=== PATIENT | male | born 1960 | race Caucasian/White ===

== ENCOUNTER 2016-06-09 03:47 | Emergency (ER) | payer OTHER ==
--- NOTE | 2016-06-09 07:05 | EDDOCDS ---
Physician Documentation [facility] Name: Nish Tello Age: 55 yrs Sex: Male : 1960 Arrival Date: 06/09/2016 Time: 03:47 Bed 11 Private MD: Disposition: 06/09/16 06:56 Discharged to Home/Self Care. Impression: Acute nasopharyngitis [common cold]. - Condition is Stable. - Discharge Instructions: Upper Respiratory Infection, Adult, Viral Infections, Cool Mist Vaporizers. - Prescriptions for benzonatate 200 mg Oral Capsule - take 1 capsule by ORAL route 3 times per day As needed; 30 capsule. azelastine 137 mcg (0.1 %) Nasal Aerosol, [place] - spray 2 spray by INTRANASAL route 2 times per day each nostril; 1 bottle. - Medication Reconciliation, Local Pharmacy Hours form. - Follow up: Stan Alvarado MD; When: Call to arrange an appointment; Reason: Further diagnostic work-up, Recheck today's complaints, Continuance of care. - Problem is new. - Symptoms are unchanged. Historical: - Allergies: PENICILLINS (Hives); Rocephin (Hives, Swelling); - Home Meds: 1. Thera- Flu 2. Prilosec 20 mg Oral cpDR 1 cap once daily (Last dose: 06/08/2016 08:00) 3. Vitamin D Oral Unknown (Last dose: 06/08/2016 08:00) - PMHx: Sarcoidosis; Skin Cancer; - PSHx: Mediastinoscopy; Colonoscopy; - Social history: Smoking status: Patient states was never smoker of tobacco. No barriers to communication noted, The patient speaks fluent Citizen Of [place], Speaks appropriately for age, Preferred Language: Citizen [place]. - Family history: Not pertinent. - : The pt / caregiver states he / she is not on anticoagulants. Home medication list is obtained from the patient. - Exposure Risk Screening:: None identified. Vital Signs: 06/09 03:52 BP 140 / 87; Pulse 77; Resp 18; Temp 97.8(TE); Pulse Ox 97% on R/A; Weight 102.06 kg / lf1 225 lbs (R); Height 5 ft. 8 in. (172.72 cm) (R); Pain 6/10; 07:03 BP 112 / 87; Pulse 76; Resp 18; Temp 99.5(O); Pulse Ox 97% on R/A; Pain 0/10; ck1 03:52 Body Mass Index 34.21 (102.06 kg, 172.72 cm) lf1 MDM: 04:12 [facility] Payment Agreement was scanned into [employer] and attached to record. hs2 06:48 Financial registration complete. pm4 Signatures: Daisy AtkinsonRN RN ck1 Nohelia Flores RN RN lf1 Larry Medina PA PA btw Madelyn Martinez, Reg Reg hs2 Nish Villanueva, Reg Reg pm4 The chart was reviewed and I authenticate all verbal orders and agree with the evaluation and treatment provided.Attachments: 04:12 [facility] Payment Agreement hs2 MTDD
--- NOTE | 2016-06-09 07:05 | EDDOCDS ---
[facility] Name: Nish Tello Age: 55 yrs Sex: Male : 1960 Arrival Date: 06/09/2016 Time: 03:47 Bed 11 Private MD: Diagnosis: Acute nasopharyngitis [common cold] Presentation: 06/09 03:52 Presenting complaint: Patient states: Cough that began two days ago and is not relieved lf1 with cough medicine. Pt. reports cough is non productive and barky with sore throat. Adult Sepsis Screening: The patient does not have new or worsening altered mentation. Patient's respiratory rate is less than 22. Systolic blood pressure is greater than 100. Patient has a qSOFA score of 0- Negative Sepsis Screen. Suicide/Homicide risk assessment- the patient denies having any suicidal and/or homicidal ideations and does not present with any other emotional, behavioral or mental health complaints. Status: Patient is not a visitor services associate or dependent. Transition of care: patient was not received from another setting of care. 03:52 Acuity: PARKER Level 4 lf1 03:52 Method Of Arrival: Walkin/Carried/Asstd lf1 Triage Assessment: 03:58 General: Appears in no apparent distress, Behavior is cooperative. Pain: Location: lf1 throat Pain currently is 6 out of 10 on a pain scale. HIV screening NA for this visit Offered previously. Neurological: Level of Consciousness is awake, alert. EENT: Reports sore throat. Respiratory: Respiratory effort is even, unlabored, Reports cough that is non-productive. GI: Denies nausea, vomiting. Derm: Skin is normal. Historical: - Allergies: PENICILLINS (Hives); Rocephin (Hives, Swelling); - Home Meds: 1. Thera- Flu 2. Prilosec 20 mg Oral cpDR 1 cap once daily (Last dose: 06/08/2016 08:00) 3. Vitamin D Oral Unknown (Last dose: 06/08/2016 08:00) - PMHx: Sarcoidosis; Skin Cancer; - PSHx: Mediastinoscopy; Colonoscopy; - Social history: Smoking status: Patient states was never smoker of tobacco. No barriers to communication noted, The patient speaks fluent Andorran, Speaks appropriately for age, Preferred Language: Andorran. - Family history: Not pertinent. - : The pt / caregiver states he / she is not on anticoagulants. Home medication list is obtained from the patient. - Exposure Risk Screening:: None identified. Screenin:59 Screening information is obtained from the patient. Fall risk: No risks identified. lf1 Assistance ADL's: requires no assistance with activities of daily living. Abuse/DV Screen: The patient / caregiver reports he/she is: not in a situation that causes fear, pain or injury. Nutritional screening: No deficits noted. Advance Directives: Currently, there is no health care proxy. There is no active DNR order. There is no living will. home support is adequate. Assessment: 06:37 General: Appears in no apparent distress, comfortable, Behavior is appropriate for age, kas2 cooperative. Pain: Denies pain. Neurological: Level of Consciousness is awake, alert, Oriented to person, place, time. Cardiovascular: Rhythm is regular. Respiratory: Airway is patent Respiratory effort is even, unlabored, Respiratory pattern is regular, symmetrical, Breath sounds are clear bilaterally. Derm: Skin is intact, Skin is dry, Skin is pink, warm & dry. Skin temperature is warm. 07:04 General: Appears in no apparent distress, comfortable, Behavior is appropriate for age, ck1 cooperative. Pain: Denies pain. Neurological: Level of Consciousness is awake, alert, obeys commands, Oriented to person, place, time. Cardiovascular: Chest pain is denied. Respiratory: Respiratory effort is unlabored, Respiratory pattern is regular, symmetrical. Derm: Skin is pink, warm & dry. Vital Signs: 03:52 BP 140 / 87; Pulse 77; Resp 18; Temp 97.8(TE); Pulse Ox 97% on R/A; Weight 102.06 kg lf1 (R); Height 5 ft. 8 in. (172.72 cm) (R); Pain 6/10; 07:03 BP 112 / 87; Pulse 76; Resp 18; Temp 99.5(O); Pulse Ox 97% on R/A; Pain 0/10; ck1 03:52 Body Mass Index 34.21 (102.06 kg, 172.72 cm) [facility] Vitals: 03:52 Log In Time: June 09, 2016 at 03:48. [facility] ED Course: 03:48 Patient visited by Madelyn Martinez Reg. hs2 03:48 Patient moved to Waiting hs2 03:55 Triage Initiated lf1 04:12 [facility] Payment Agreement was scanned into [employer] and attached to record. hs2 06:31 Araseli Joe RN is Primary Nurse. mdr 06:31 Patient moved to 11 mdr 06:38 Patient visited by Araseli Joe RN. kas2 06:44 Larry Medina PA is PHCP. btw 06:44 Damon Desai DO is Attending Physician. btw 06:44 Patient visited by Larry Medina PA. btw 06:54 Stan Alvarado MD is Referral Physician. btw 06:58 Daisy Atkinson,KORTNEY is Primary Nurse. ck1 06:58 No IV's were initiated during this patient's visit. No procedures done that require ck1 assistance. 06:59 The patient / caregiver is instructed regarding the plan of care and ED course. ck1 Order Results: There are currently no results for this order. Outcome: 06:56 Discharge ordered by Provider. btw 06:58 Discharge Assessment: Patient awake, alert and oriented x 3. No cognitive and/or ck1 functional deficits noted. Patient verbalized understanding of disposition instructions. patient administered narcotics - no. The following High Risk Discharge criteria are identified: None. Discharged to home ambulatory. Condition: stable. No special radiology studies were completed. Property :Personal belongings accompany Pt. 07:03 Discharge instructions given to patient, Instructed on discharge instructions, follow ck1 up and referral plans. medication usage, Demonstrated understanding of instructions, medications, Pt was receptive of discharge instructions/ teaching. Prescriptions given X 2. 07:04 Patient left the ED. ck1 Signatures: Daisy Atkinson,KORTNEY RN ck1 Nohelia Flores RN RN 1 Larry Medina PA PA btw Hector Kennedy, REAL ESTATE INSTRUCTOR REAL ESTATE INSTRUCTOR mdr MartinezMadelyn, Reg Reg hs2 Araseli Joe RN RN kas2 MTDD
--- NOTE | 2016-06-11 08:05 | EDDOCDS ---
Physician Documentation [facility] Name: Nish Tello Age: 55 yrs Sex: Male : 1960 Arrival Date: 06/09/2016 Time: 03:47 Bed 11 Private MD: Disposition: 06/09/16 06:56 Discharged to Home/Self Care. Impression: Acute nasopharyngitis [common cold]. - Condition is Stable. - Discharge Instructions: Upper Respiratory Infection, Adult, Viral Infections, Cool Mist Vaporizers. - Prescriptions for benzonatate 200 mg Oral Capsule - take 1 capsule by ORAL route 3 times per day As needed; 30 capsule. azelastine 137 mcg (0.1 %) Nasal Aerosol, [place] - spray 2 spray by INTRANASAL route 2 times per day each nostril; 1 bottle. - Medication Reconciliation, Local Pharmacy Hours form. - Follow up: Stan Alvarado MD; When: Call to arrange an appointment; Reason: Further diagnostic work-up, Recheck today's complaints, Continuance of care. - Problem is new. - Symptoms are unchanged. Historical: - Allergies: PENICILLINS (Hives); Rocephin (Hives, Swelling); - Home Meds: 1. Thera- Flu 2. Prilosec 20 mg Oral cpDR 1 cap once daily (Last dose: 06/08/2016 08:00) 3. Vitamin D Oral Unknown (Last dose: 06/08/2016 08:00) - PMHx: Sarcoidosis; Skin Cancer; - PSHx: Mediastinoscopy; Colonoscopy; - Social history: Smoking status: Patient states was never smoker of tobacco. No barriers to communication noted, The patient speaks fluent [place]ambian, Speaks appropriately for age, Preferred Language: Zambian. - Family history: Not pertinent. - : The pt / caregiver states he / she is not on anticoagulants. Home medication list is obtained from the patient. - Exposure Risk Screening:: None identified. Vital Signs: 06/09 03:52 BP 140 / 87; Pulse 77; Resp 18; Temp 97.8(TE); Pulse Ox 97% on R/A; Weight 102.06 kg / lf1 225 lbs (R); Height 5 ft. 8 in. (172.72 cm) (R); Pain 6/10; 07:03 BP 112 / 87; Pulse 76; Resp 18; Temp 99.5(O); Pulse Ox 97% on R/A; Pain 0/10; ck1 03:52 Body Mass Index 34.21 (102.06 kg, 172.72 cm) lf1 MDM: 04:12 [facility] Payment Agreement was scanned into [employer] and attached to record. hs2 06:48 Financial registration complete. pm4 13:29 T-Sheet-- Draft Copy was scanned into [employer] and attached to record. gb Signatures: Adeline Fuchs, Reg Reg gb Daisy Atkinson,RN RN ck1 Nohelia Flores,RN RN lf1 Larry Medina, GERDA PA btw Madelyn Martinez, Reg Reg hs2 Nish Villanueva, Reg Reg pm4 The chart was reviewed and I authenticate all verbal orders and agree with the evaluation and treatment provided.Attachments: 04:12 [facility] Payment Agreement hs2 13:29 T-Sheet-- Draft Copy gb Chart Complete MTDD
--- NOTE | 2016-06-11 08:05 | EDDOCDS ---
Nurse's Notes [facility] Name: Nish Tello Age: 55 yrs Sex: Male : 1960 Arrival Date: 06/09/2016 Time: 03:47 Bed 11 Private MD: Diagnosis: Acute nasopharyngitis [common cold] Presentation: 06/09 03:52 Presenting complaint: Patient states: Cough that began two days ago and is not relieved lf1 with cough medicine. Pt. reports cough is non productive and barky with sore throat. Adult Sepsis Screening: The patient does not have new or worsening altered mentation. Patient's respiratory rate is less than 22. Systolic blood pressure is greater than 100. Patient has a qSOFA score of 0- Negative Sepsis Screen. Suicide/Homicide risk assessment- the patient denies having any suicidal and/or homicidal ideations and does not present with any other emotional, behavioral or mental health complaints. Status: Patient is not a service counselor or dependent. Transition of care: patient was not received from another setting of care. 03:52 Acuity: PARKER Level 4 lf1 03:52 Method Of Arrival: Walkin/Carried/Asstd lf1 Triage Assessment: 03:58 General: Appears in no apparent distress, Behavior is cooperative. Pain: Location: lf1 throat Pain currently is 6 out of 10 on a pain scale. HIV screening NA for this visit Offered previously. Neurological: Level of Consciousness is awake, alert. EENT: Reports sore throat. Respiratory: Respiratory effort is even, unlabored, Reports cough that is non-productive. GI: Denies nausea, vomiting. Derm: Skin is normal. Historical: - Allergies: PENICILLINS (Hives); Rocephin (Hives, Swelling); - Home Meds: 1. Thera- Flu 2. Prilosec 20 mg Oral cpDR 1 cap once daily (Last dose: 06/08/2016 08:00) 3. Vitamin D Oral Unknown (Last dose: 06/08/2016 08:00) - PMHx: Sarcoidosis; Skin Cancer; - PSHx: Mediastinoscopy; Colonoscopy; - Social history: Smoking status: Patient states was never smoker of tobacco. No barriers to communication noted, The patient speaks fluent [place]ralt[place], Speaks appropriately for age, Preferred Language: Gibraltarian. - Family history: Not pertinent. - : The pt / caregiver states he / she is not on anticoagulants. Home medication list is obtained from the patient. - Exposure Risk Screening:: None identified. Screenin:59 Screening information is obtained from the patient. Fall risk: No risks identified. lf1 Assistance ADL's: requires no assistance with activities of daily living. Abuse/DV Screen: The patient / caregiver reports he/she is: not in a situation that causes fear, pain or injury. Nutritional screening: No deficits noted. Advance Directives: Currently, there is no health care proxy. There is no active DNR order. There is no living will. home support is adequate. Assessment: 06:37 General: Appears in no apparent distress, comfortable, Behavior is appropriate for age, kas2 cooperative. Pain: Denies pain. Neurological: Level of Consciousness is awake, alert, Oriented to person, place, time. Cardiovascular: Rhythm is regular. Respiratory: Airway is patent Respiratory effort is even, unlabored, Respiratory pattern is regular, symmetrical, Breath sounds are clear bilaterally. Derm: Skin is intact, Skin is dry, Skin is pink, warm & dry. Skin temperature is warm. 07:04 General: Appears in no apparent distress, comfortable, Behavior is appropriate for age, ck1 cooperative. Pain: Denies pain. Neurological: Level of Consciousness is awake, alert, obeys commands, Oriented to person, place, time. Cardiovascular: Chest pain is denied. Respiratory: Respiratory effort is unlabored, Respiratory pattern is regular, symmetrical. Derm: Skin is pink, warm & dry. Vital Signs: 03:52 BP 140 / 87; Pulse 77; Resp 18; Temp 97.8(TE); Pulse Ox 97% on R/A; Weight 102.06 kg lf1 (R); Height 5 ft. 8 in. (172.72 cm) (R); Pain 6/10; 07:03 BP 112 / 87; Pulse 76; Resp 18; Temp 99.5(O); Pulse Ox 97% on R/A; Pain 0/10; ck1 03:52 Body Mass Index 34.21 (102.06 kg, 172.72 cm) [facility] Vitals: 03:52 Log In Time: June 09, 2016 at 03:48. [facility] ED Course: 03:48 Patient visited by Madelyn Martinez Reg. hs2 03:48 Patient moved to Waiting hs2 03:55 Triage Initiated lf1 04:12 [facility] Payment Agreement was scanned into [employer] and attached to record. hs2 06:31 Araseli JoeRN is Primary Nurse. mdr 06:31 Patient moved to 11 mdr 06:38 Patient visited by Araseli Joe RN. kas2 06:44 Larry Medina PA is PHCP. btw 06:44 Damon Desai DO is Attending Physician. btw 06:44 Patient visited by Larry Medina PA. btw 06:54 Stan Alvarado MD is Referral Physician. btw 06:58 Daisy Atkinson,RN is Primary Nurse. ck1 06:58 No IV's were initiated during this patient's visit. No procedures done that require ck1 assistance. 06:59 The patient / caregiver is instructed regarding the plan of care and ED course. ck1 13:29 T-Sheet-- Draft Copy was scanned into [employer] and attached to record. gb Order Results: There are currently no results for this order. Outcome: 06:56 Discharge ordered by Provider. btw 06:58 Discharge Assessment: Patient awake, alert and oriented x 3. No cognitive and/or ck1 functional deficits noted. Patient verbalized understanding of disposition instructions. patient administered narcotics - no. The following High Risk Discharge criteria are identified: None. Discharged to home ambulatory. Condition: stable. No special radiology studies were completed. Property :Personal belongings accompany Pt. 07:03 Discharge instructions given to patient, Instructed on discharge instructions, follow ck1 up and referral plans. medication usage, Demonstrated understanding of instructions, medications, Pt was receptive of discharge instructions/ teaching. Prescriptions given X 2. 07:04 Patient left the ED. ck1 Signatures: Adeline Fuchs, Reg Reg gb Daisy Atkinson RN RN ck1 Nohelia Flores RN RN lf1 Larry Medina PA PA btw Hector Kennedy, FINANCIAL SERVICE REPRESENTATIVE FINANCIAL SERVICE REPRESENTATIVE mdr Madelyn Martinez, Reg Reg hs2 Araseli Joe RN RN kas2 Chart Complete MTDD
--- NOTE | 2016-06-11 08:05 | EDDOCDS ---
Physician Documentation [facility] Name: Nish Tello Age: 55 yrs Sex: Male : 1960 Arrival Date: 06/09/2016 Time: 03:47 Bed 11 Private MD: Disposition: 06/09/16 06:56 Discharged to Home/Self Care. Impression: Acute nasopharyngitis [common cold]. - Condition is Stable. - Discharge Instructions: Upper Respiratory Infection, Adult, Viral Infections, Cool Mist Vaporizers. - Prescriptions for benzonatate 200 mg Oral Capsule - take 1 capsule by ORAL route 3 times per day As needed; 30 capsule. azelastine 137 mcg (0.1 %) Nasal Aerosol, [place] - spray 2 spray by INTRANASAL route 2 times per day each nostril; 1 bottle. - Medication Reconciliation, Local Pharmacy Hours form. - Follow up: Stan Alvarado MD; When: Call to arrange an appointment; Reason: Further diagnostic work-up, Recheck today's complaints, Continuance of care. - Problem is new. - Symptoms are unchanged. Historical: - Allergies: PENICILLINS (Hives); Rocephin (Hives, Swelling); - Home Meds: 1. Thera- Flu 2. Prilosec 20 mg Oral cpDR 1 cap once daily (Last dose: 06/08/2016 08:00) 3. Vitamin D Oral Unknown (Last dose: 06/08/2016 08:00) - PMHx: Sarcoidosis; Skin Cancer; - PSHx: Mediastinoscopy; Colonoscopy; - Social history: Smoking status: Patient states was never smoker of tobacco. No barriers to communication noted, The patient speaks fluent Tanzanian, Speaks appropriately for age, Preferred Language: Tanzanian. - Family history: Not pertinent. - : The pt / caregiver states he / she is not on anticoagulants. Home medication list is obtained from the patient. - Exposure Risk Screening:: None identified. Vital Signs: 06/09 03:52 BP 140 / 87; Pulse 77; Resp 18; Temp 97.8(TE); Pulse Ox 97% on R/A; Weight 102.06 kg / lf1 225 lbs (R); Height 5 ft. 8 in. (172.72 cm) (R); Pain 6/10; 07:03 BP 112 / 87; Pulse 76; Resp 18; Temp 99.5(O); Pulse Ox 97% on R/A; Pain 0/10; ck1 03:52 Body Mass Index 34.21 (102.06 kg, 172.72 cm) lf1 MDM: 04:12 [facility] Payment Agreement was scanned into [employer] and attached to record. hs2 06:48 Financial registration complete. pm4 13:29 T-Sheet-- Draft Copy was scanned into [employer] and attached to record. gb Signatures: Adeline Fuchs, Reg Reg gb Daisy Atkinson,RN RN ck1 Nohelia Flores,RN RN lf1 Larry Medina, GERDA PA btw Madelyn Martinez, Reg Reg hs2 Nish Villanueva, Reg Reg pm4 The chart was reviewed and I authenticate all verbal orders and agree with the evaluation and treatment provided.Attachments: 04:12 [facility] Payment Agreement hs2 13:29 T-Sheet-- Draft Copy gb Chart Complete MTDD
== END 2016-06-09 07:04 | disposition home or self-care (01) ==
LOC: M ED 03:47
DX: J00 Acute nasopharyngitis [common cold] (principal); B34.9 Viral infection, unspecified; D86.9 Sarcoidosis, unspecified; Z85.828 Personal history of other malignant neoplasm of skin; Z79.899 Other long term (current) drug therapy; Z88.0 Allergy status to penicillin; Z88.1 Allergy status to other antibiotic agents

== ENCOUNTER → 2016-07-27 | Outpatient (REF) | payer OTHER ==
[2016-07-27 13:26] LABS: MEAN CORPUSCULAR HEMOGLOBIN 28.6 pg (27.0-33.0); MEAN CORPUSCULAR HGB CONC 33.6 g/dl (32.0-36.5); MEAN CORPUSCULAR VOLUME 85.1 fl (80.0-96.0); RED CELL DISTRIBUTION WIDTH 13.2 % (11.5-14.5); WHITE BLOOD COUNT 4.8 K/mm3 (4.0-10.0)
[2016-07-27 13:32] LABS: ALBUMIN 4.1 GM/DL (3.2-5.2); ALBUMIN/GLOBULIN RATIO 1.46 (1.00-1.93); ALKALINE PHOSPHATASE 90 U/L (45-117); ALT/SGPT 49 U/L (12-78); ANION GAP 9 MEQ/L (8-16); AST/SGOT 28 U/L (15-37); BILIRUBIN,TOTAL 0.6 MG/DL (0.2-1.0); BLOOD UREA NITROGEN 17 MG/DL (7-18); CALCIUM LEVEL 8.9 MG/DL (8.5-10.1); CARBON DIOXIDE LEVEL 28 MEQ/L (21-32); CHLORIDE LEVEL 105 MEQ/L (98-107); CHOLESTEROL LEVEL 251 MG/DL (<200); CREATININE FOR GFR 0.88 MG/DL (0.70-1.30); GLOMERULAR FILTRATION RATE > 60.0 (>56); GLUCOSE, FASTING 100 MG/DL (70-105); POTASSIUM SERUM 4.6 MEQ/L (3.5-5.1); SODIUM LEVEL 142 MEQ/L (136-145); TOTAL PROTEIN 6.9 GM/DL (6.4-8.2); TRIGLYCERIDES LEVEL 160 MG/DL (<150)
== END ==
LOC: M SFHCADAM 07:56
PROVIDERS: ATTEND Physician Assistant
DX: D86.0 Sarcoidosis of lung (principal); K21.9 Gastro-esophageal reflux disease without esophagitis; E78.00 Pure hypercholesterolemia, unspecified; E55.9 Vitamin D deficiency, unspecified

== ENCOUNTER → 2017-09-08 | Outpatient (REF) | payer OTHER | LOC: M LAB REF 13:28 | DX: L72.3 Sebaceous cyst (principal) ==

== ENCOUNTER 2018-08-07 20:08 | Emergency (ER) | payer OTHER ==
[~2018-08-07] VITALS: Ht 177.8 cm; Wt 100.0 kg
[2018-08-07] MEDS ORDERED: NS 1,000 ML IV ONE (20:45)
[2018-08-07 20:50] LABS: BASO # 0.1 10^3/uL (0.0-0.2); BASO % 0.9 % (0.0-1.0); EOS # 0.2 10^3/uL (0.0-0.50); EOS % 2.9 % (0.0-3.0); HEMATOCRIT 47.1 % (42.0-52.0); HEMOGLOBIN 16.1 g/dl (13.5-17.5); LYMPH # 1.5 10^3/uL (1.5-4.5); LYMPH % 22.2 % (24.0-44.0); MEAN CORPUSCULAR HEMOGLOBIN 28.1 pg (27.0-33.0); MEAN CORPUSCULAR HGB CONC 34.2 g/dl (32.0-36.5); MEAN CORPUSCULAR VOLUME 82.2 fl (80.0-96.0); MONO # 0.7 10^3/uL (0.0-0.8); MONO % 10.5 % (0.0-5.0); NEUTROPHILS # 4.3 10^3/uL (1.8-7.7); NEUTROPHILS % 62.9 % (36.0-66.0); PLATELET COUNT, AUTOMATED 290 10^3/uL (150-450); RED BLOOD COUNT 5.73 10^6/uL (4.30-6.10); WHITE BLOOD COUNT 6.8 10^3/uL (4.0-10.0)
[2018-08-07 21:02] LABS: PARTIAL THROMBOPLASTIN TIME 33.6 SECONDS (25.4-37.6); PROTHROMBIN TIME 13.3 SECONDS (12.1-14.4)
[2018-08-07] MEDS ORDERED: MORPHINE 4 MG/ML 1ML VIAL/SYRINGE (J2270) IV ONE (21:15)
[2018-08-07 22:53] VITALS: BP 172/96
[2018-08-07] MEDS ORDERED: CLEO300C2 PO (22:59)
[2018-08-07] MEDS ORDERED: CLINDAMYCIN 150 MG CAP PO ONE (23:00)
== END 2018-08-07 23:26 | disposition home or self-care (01) ==
LOC: EDBD 20:08 → M ED 20:08
DX: R04.0 Epistaxis (principal); D86.9 Sarcoidosis, unspecified; Z88.0 Allergy status to penicillin; Z88.1 Allergy status to other antibiotic agents
CPT/HCPCS: 30901; 85025; 85610; 85730; 86850; 86900; 86901; 96374; 99284; J2270

== ENCOUNTER 2018-08-16 09:04 | Emergency (ER) | payer OTHER ==
[~2018-08-16] VITALS: Ht 177.8 cm; Wt 100.0 kg
[2018-08-16 09:04] VITALS: BP 146/86
[~2018-08-16 09:04] MED LIST: CLEO300C2 PO
[2018-08-16] MEDS ORDERED: PHENYLEPHRINE 0.5% NASAL SPRAY 15 ML ONE (09:30)
== END 2018-08-16 10:17 | disposition home or self-care (01) ==
LOC: M ED 09:04
DX: R04.0 Epistaxis (principal); D86.0 Sarcoidosis of lung; Z85.828 Personal history of other malignant neoplasm of skin; Z88.0 Allergy status to penicillin; Z88.1 Allergy status to other antibiotic agents

== ENCOUNTER → 2018-08-27 | Outpatient (REF) | payer OTHER ==
[2018-08-27 17:25] LABS: ALT/SGPT 38 U/L (12-78); BILIRUBIN,TOTAL 0.6 MG/DL (0.2-1.0); BLOOD UREA NITROGEN 18 MG/DL (7-18); CALCIUM LEVEL 8.8 MG/DL (8.5-10.1); CARBON DIOXIDE LEVEL 26 MEQ/L (21-32); CHLORIDE LEVEL 108 MEQ/L (98-107); CHOLESTEROL LEVEL 192 MG/DL (<200); CHOLESTEROL RISK RATIO 3.047 (<5); GLOMERULAR FILTRATION RATE > 60.0 (>56); GLUCOSE, FASTING 96 MG/DL (70-100); HDL CHOLESTEROL 63 MG/DL (>40); LDL CHOLESTEROL 111 MG/DL (<100); NON-HDL-C 129 MG/DL; POTASSIUM SERUM 4.6 MEQ/L (3.5-5.1); SODIUM LEVEL 142 MEQ/L (136-145); TOTAL PROTEIN 6.7 GM/DL (6.4-8.2); TRIGLYCERIDES LEVEL 88 MG/DL (<150)
[2018-08-27 17:38] LABS: HEMATOCRIT 46.7 % (42.0-52.0); HEMOGLOBIN 15.6 g/dl (13.5-17.5); MEAN CORPUSCULAR HEMOGLOBIN 27.6 pg (27.0-33.0); MEAN CORPUSCULAR HGB CONC 33.4 g/dl (32.0-36.5); MEAN CORPUSCULAR VOLUME 82.7 fl (80.0-96.0); PLATELET COUNT, AUTOMATED 320 10^3/uL (150-450); RED BLOOD COUNT 5.65 10^6/uL (4.30-6.10); WHITE BLOOD COUNT 5.5 10^3/uL (4.0-10.0)
== END ==
LOC: M SFHCCAPE 07:01
PROVIDERS: ATTEND Physician Assistant
DX: E66.9 Obesity, unspecified (principal); E78.00 Pure hypercholesterolemia, unspecified

== ENCOUNTER → 2020-09-17 | Outpatient (CLI) | payer OTHER ==
--- NOTE | 2020-09-17 13:21 | REP ---
INDICATION: PAIN. COMPARISON: None. TECHNIQUE: Six views of the right knee are obtained. FINDINGS: There is moderate 3 compartment osteoarthritis. Joint space narrowing and sclerosis is visible in the medial compartment of the tibiofemoral articulation. There is well established spurring. Some subcortical cyst formation is seen. Patellofemoral and lateral compartment spurring are noted. There is chondrocalcinosis in the lateral compartment of the knee joint. No erosive changes seen. No bony destructive lesion noted. IMPRESSION: Moderate 3 compartment osteoarthritis. Osteoarthritis most pronounced in the medial compartment. <Electronically signed by Adalid Cooney > 09/17/20 [id number]
== END ==
LOC: M SOG 11:18
PROVIDERS: ATTEND Orthopaedic Surgery Sports Medicine
DX: M17.11 Unilateral primary osteoarthritis, right knee (principal)

== ENCOUNTER → 2020-09-18 | Outpatient (CLI) | payer OTHER ==
--- NOTE | 2020-09-18 16:14 | REP ---
INDICATION: PAIN OF RT LOWER EXT, SWELLING. COMPARISON: Comparison study January 19, 2015.. TECHNIQUE: Duplex venous sonography right lower extremity. FINDINGS: The deep veins are anechoic and fully compressible from the groin to the popliteal fossa in the right lower extremity. Color flow imaging is homogeneous. Spectral Doppler interrogation demonstrates intact respiratory variation in flow and normal manual augmentation of flow. There is no evidence of deep vein thrombosis. IMPRESSION: Negative right lower extremity duplex venous ultrasound. No evidence of deep vein thrombosis. <Electronically signed by Adalid Cooney > 09/18/20 [id number]
== END ==
LOC: M RAD 15:44
PROVIDERS: ATTEND Physician Assistant
DX: R22.41 Localized swelling, mass and lump, right lower limb (principal)

== ENCOUNTER → 2020-12-02 | Outpatient (CLI) | payer OTHER | LOC: M LABSMTC 10:03 | PROVIDERS: ATTEND Anesthesiology | DX: Z01.812 Encounter for preprocedural laboratory examination (principal) ==

== ENCOUNTER 2020-12-07 08:42 | Day surgery (SDC) | payer OTHER ==
[~2020-12-07] VITALS: Ht 172.7 cm; Wt 98.0 kg
[~2020-12-07 08:42] MED LIST changes: +NS 1,000 ML IV ONE
[2020-12-07] MEDS ORDERED: LIDOCAINE 2% 100MG/5ML SDV (FOR ANES.) As Ordered ONE (10:10)
[2020-12-07] MEDS ORDERED: propofoL 200 MG/20 ML VIAL As Ordered ONE (10:10)
--- NOTE | 2020-12-07 10:29 | ROOR ---
Patient Name: Nish Tello Procedure Date: 12/07/2020 10:08 AM Date of : 1960 Age: 60 Room: [facility] Gender: Male Note Status: Finalized Procedure: Total Colonoscopy to Cecum + Cold Snare Polypectomy + Hemoclips Indications: High risk colon cancer surveillance: Personal history of colonic polyps, Last colonoscopy: 2013 Providers: Seamus Hernández MD Referring MD: Stan Alvarado MD Requesting Provider: Medicines: Monitored Anesthesia Care Complications: No immediate complications. Procedure: Pre-Anesthesia Assessment: - The heart rate, respiratory rate, oxygen saturations, blood pressure, adequacy of pulmonary ventilation, and response to care were monitored throughout the procedure. The Colonoscope was introduced through the anus and advanced to the cecum, identified by appendiceal orifice and ileocecal valve. The colonoscopy was performed without difficulty. The patient tolerated the procedure well. The quality of the bowel preparation was excellent. Findings: The perianal and digital rectal examinations were normal. Non-bleeding internal hemorrhoids were found during retroflexion. The hemorrhoids were small and Grade I (internal hemorrhoids that do not prolapse). Two sessile polyps were found in the ascending colon. The polyps were small in size. These polyps were removed with a cold snare. Resection and retrieval were complete. To prevent bleeding after the polypectomy, one hemostatic clip was successfully placed. There was no bleeding at the end of the procedure. Two sessile polyps were found in the descending colon. The polyps were small in size. These polyps were removed with a cold snare. Resection and retrieval were complete. The exam was otherwise without abnormality on direct and retroflexion views. Impression: - Non-bleeding internal hemorrhoids. - Two small polyps in the ascending colon, removed with a cold snare. Resected and retrieved. Clip was placed. - Two small polyps in the descending colon, removed with a cold snare. Resected and retrieved. - The examination was otherwise normal on direct and retroflexion views. - The exam was otherwise normal to the cecum. Recommendation: - Patient has a contact number available for emergencies. The signs and symptoms of potential delayed complications were discussed with the patient. Return to normal activities tomorrow. Written discharge instructions were provided to the patient. - High fiber diet. - Discharge patient to home. - Continue present medications. - Await pathology results. - Telephone GI clinic for pathology results in 1 week. - Repeat colonoscopy in 5 years for surveillance based on pathology results. - Return to referring physician. - The findings and recommendations were discussed with the patient's family. Procedure Code(s): --- Professional --- 40510, Colonoscopy, flexible; with removal of tumor(s), polyp(s), or other lesion(s) by snare technique Diagnosis Code(s): --- Professional --- Z86.010, Personal history of colonic polyps K64.0, First degree hemorrhoids K63.5, Polyp of colon CPT copyright 2019 [employer]. All rights reserved. The codes documented in this report are preliminary and upon medical receptionist biller review may be revised to meet current compliance requirements. Seamus Hernández MD Seamus Hernández MD 12/07/2020 10:29:23 AM Electronically signed by Seamus Hernández MD Number of Addenda: 0 Note Initiated On: 12/07/2020 10:08 AM Estimated Blood Loss: Estimated blood loss: none.
[2020-12-07 11:07] VITALS: BP 120/61
== END 2020-12-07 11:00 | disposition home or self-care (01) ==
LOC: M OPP 08:42
PROVIDERS: ATTEND Internal Medicine Gastroenterology
DX: Z12.11 Encounter for screening for malignant neoplasm of colon (principal); Z86.010 Personal history of colon polyps; K63.5 Polyp of colon; K64.0 First degree hemorrhoids; K21.9 Gastro-esophageal reflux disease without esophagitis; Z88.0 Allergy status to penicillin; Z88.1 Allergy status to other antibiotic agents

== ENCOUNTER → 2021-07-16 | Outpatient (REF) | payer OTHER ==
[~2021-07-16] MED LIST changes: -NS 1,000 ML IV ONE
[2021-07-16 12:17] LABS: ALBUMIN 3.8 GM/DL (3.2-5.2); PERCENT SATURATION 22.2 % (19.7-50.0)
== END ==
LOC: M LABDRAWC 11:10
PROVIDERS: ATTEND Orthopaedic Surgery
DX: M17.10 Unilateral primary osteoarthritis, unspecified knee (principal); M25.569 Pain in unspecified knee; Z01.818 Encounter for other preprocedural examination

== ENCOUNTER → 2021-08-31 | Outpatient (REF) | payer OTHER ==
[2021-08-31 16:28] LABS: APPEARANCE, URINE CLEAR (CLEAR); BACTERIA, URINE AUTO NEGATIVE (NEGATIVE); BILIRUBIN, URINE AUTO NEGATIVE (NEGATIVE); BLOOD, URINE BLOOD NEGATIVE (NEGATIVE); COLOR, URINE YELLOW (YELLOW); GLUCOSE, URINE (UA) AUTO NEGATIVE (NEGATIVE); KETONE, URINE AUTO NEGATIVE (NEGATIVE); LEUKOCYTE ESTERASE, URINE AUTO NEGATIVE (NEGATIVE); MUCUS, URINE SMALL (NEGATIVE); NITRITE, URINE AUTO NEGATIVE (NEGATIVE); PROTEIN, URINE AUTO NEGATIVE (NEGATIVE); RBC, URINE AUTO 0 /HPF (0-3); SPECIFIC GRAVITY URINE AUTO 1.024 (1.002-1.035); SQUAMOUS EPITHELIAL CELL UR AU 0 /HPF (0-6); WBC, URINE AUTO 1 /HPF (0-3)
[2021-08-31 16:33] LABS: BASO # 0.1 10^3/uL (0.0-0.2); BASO % 0.8 % (0.0-1.0); EOS # 0.2 10^3/uL (0.0-0.5); EOS % 2.6 % (0.0-3.0); HEMATOCRIT 48.5 % (42.0-52.0); HEMOGLOBIN 16.2 g/dl (13.5-17.5); LYMPH # 1.4 10^3/uL (1.5-5.0); LYMPH % 18.5 % (24.0-44.0); MEAN CORPUSCULAR HEMOGLOBIN 27.6 pg (27.0-33.0); MEAN CORPUSCULAR HGB CONC 33.4 g/dl (32.0-36.5); MEAN CORPUSCULAR VOLUME 82.6 fl (80.0-96.0); MONO # 0.9 10^3/uL (0.0-0.8); MONO % 12.1 % (2.0-8.0); NEUTROPHILS # 4.8 10^3/uL (1.5-8.5); NEUTROPHILS % 65.6 % (36.0-66.0); PLATELET COUNT, AUTOMATED 298 10^3/uL (150-450); RED BLOOD COUNT 5.87 10^6/uL (4.30-6.10); WHITE BLOOD COUNT 7.4 10^3/uL (4.0-10.0)
[2021-08-31 16:36] LABS: INR 1.05; PROTHROMBIN TIME 14.1 SECONDS (12.7-14.5)
[2021-08-31 16:37] LABS: PARTIAL THROMBOPLASTIN TIME 36.9 SECONDS (25.9-37.0)
[2021-08-31 18:14] LABS: ALBUMIN 3.9 GM/DL (3.2-5.2); ALT/SGPT 44 U/L (12-78); BILIRUBIN,TOTAL 0.9 MG/DL (0.2-1.0); BLOOD UREA NITROGEN 16 MG/DL (7-18); CALCIUM LEVEL 8.8 MG/DL (8.5-10.1); CARBON DIOXIDE LEVEL 27 MEQ/L (21-32); CHLORIDE LEVEL 105 MEQ/L (98-107); CREATININE FOR GFR 1.05 MG/DL (0.70-1.30); GLOMERULAR FILTRATION RATE > 60.0 (>56); GLUCOSE, FASTING 146 MG/DL (70-100); POTASSIUM SERUM 3.9 MEQ/L (3.5-5.1); SODIUM LEVEL 137 MEQ/L (136-145); TOTAL PROTEIN 6.8 GM/DL (6.4-8.2)
== END ==
LOC: M SFHCADAM 12:58
PROVIDERS: ATTEND Family Medicine
DX: Z01.818 Encounter for other preprocedural examination (principal)

== ENCOUNTER → 2022-08-30 | Outpatient (CLI) | payer OTHER | LOC: M ADAMS 10:53 | PROVIDERS: ATTEND Family Medicine | DX: R05.9 Cough, unspecified (principal) ==

== ENCOUNTER → 2022-08-30 | Outpatient (REF) | payer OTHER ==
[2022-08-30 14:37] LABS: BASO # 0.1 10^3/uL (0.0-0.2); BASO % 0.6 % (0.0-1.0); EOS # 0.3 10^3/uL (0.0-0.5); EOS % 3.3 % (0.0-3.0); HEMATOCRIT 46.7 % (42.0-52.0); HEMOGLOBIN 15.6 g/dl (13.5-17.5); LYMPH # 1.8 10^3/uL (1.5-5.0); LYMPH % 18.7 % (24.0-44.0); MEAN CORPUSCULAR HEMOGLOBIN 28.1 pg (27.0-33.0); MEAN CORPUSCULAR HGB CONC 33.4 g/dl (32.0-36.5); MONO # 0.9 10^3/uL (0.0-0.8); MONO % 9.6 % (2.0-8.0); NEUTROPHILS # 6.3 10^3/uL (1.5-8.5); NEUTROPHILS % 67.4 % (36.0-66.0); PLATELET COUNT, AUTOMATED 302 10^3/uL (150-450); RED BLOOD COUNT 5.56 10^6/uL (4.30-6.10); WHITE BLOOD COUNT 9.4 10^3/uL (4.0-10.0)
== END ==
LOC: M SFHCADAM 10:44
PROVIDERS: ATTEND Family Medicine
DX: T14.8XXA Other injury of unspecified body region, initial encounter (principal)

== ENCOUNTER → 2023-11-30 | Outpatient (REF) | payer OTHER ==
[2023-11-30 13:10] LABS: HEMATOCRIT 49.3 % (42.0-52.0); HEMOGLOBIN 16.5 g/dl (13.5-17.5); MEAN CORPUSCULAR HEMOGLOBIN 28.4 pg (27.0-33.0); MEAN CORPUSCULAR HGB CONC 33.5 g/dl (32.0-36.5); PLATELET COUNT, AUTOMATED 302 10^3/uL (150-450); WHITE BLOOD COUNT 6.3 10^3/uL (4.0-10.0)
[2023-11-30 13:17] LABS: PSA SCREENING 0.76 NG/ML (< 4.00)
[2023-11-30 13:18] LABS: ALBUMIN 3.8 G/DL (3.2-5.2); ALKALINE PHOSPHATASE 82 U/L (46-116); ALT/SGPT 22 U/L (7.0-40); AST/SGOT 11 U/L (<34); BILIRUBIN,TOTAL 0.7 MG/DL (0.3-1.2); BLOOD UREA NITROGEN 14 MG/DL (9-23); CALCIUM LEVEL 9.5 MG/DL (8.3-10.6); CARBON DIOXIDE LEVEL 28 MMOL/L (20-31); CHLORIDE LEVEL 108 MMOL/L (98-107); CHOLESTEROL LEVEL 187 MG/DL (<200); CHOLESTEROL RISK RATIO 3.76 (<5); GLOMERULAR FILTRATION RATE > 60.0 (>49); GLUCOSE, FASTING 97 MG/DL (74-106); HDL CHOLESTEROL 49.7 MG/DL (>40); LDL CHOLESTEROL 108.3 MG/DL (<100); NON-HDL-C 137.3 MG/DL; POTASSIUM SERUM 4.9 MMOL/L (3.5-5.1); SODIUM LEVEL 142 MMOL/L (136-145); TOTAL PROTEIN 6.7 G/DL (5.7-8.2); TRIGLYCERIDES LEVEL 145 MG/DL (<150)
[2023-11-30 13:38] LABS: CREATININE, URINE 121.1 MG/DL
[2023-11-30 13:39] LABS: MALB URINE SIEMENS < 3.0 MG/L; MAU/CREAT RATIO 2.4 MCG/MG (0.0-30.0)
[2023-11-30 13:43] LABS: HEMOGLOBIN A1c 5.6 % (4.0-6.0)
== END ==
LOC: M SFHCADAM 08:34
PROVIDERS: ATTEND Physician Assistant
DX: Z00.00 Encounter for general adult medical examination without abnormal findings (principal); D86.0 Sarcoidosis of lung; E78.2 Mixed hyperlipidemia; K21.9 Gastro-esophageal reflux disease without esophagitis; Z13.1 Encounter for screening for diabetes mellitus; E66.9 Obesity, unspecified; R03.0 Elevated blood-pressure reading, without diagnosis of hypertension; Z12.5 Encounter for screening for malignant neoplasm of prostate
CPT/HCPCS: 80053; 80061; 82043; 83036; 85027; G0103

== ENCOUNTER → 2024-11-28 | Outpatient (REF) | payer OTHER ==
[2024-11-28 19:43] LABS: BASO # 0.1 10^3/uL (0.0-0.2); BASO % 1.1 % (0.0-1.0); EOS # 0.3 10^3/uL (0.0-0.5); EOS % 4.7 % (0.0-3.0); LYMPH # 1.3 10^3/uL (1.5-5.0); LYMPH % 24.4 % (24.0-44.0); MONO # 0.9 10^3/uL (0.0-0.8); MONO % 15.9 % (2.0-8.0); NEUTROPHILS # 2.9 10^3/uL (1.5-8.5); NEUTROPHILS % 53.5 % (36.0-66.0); PLATELET COUNT, AUTOMATED 276 10^3/uL (150-450)
[2024-11-28 19:50] LABS: ALT/SGPT 34 U/L (7.0-40); AST/SGOT 28 U/L (<34); CALCIUM LEVEL 9.4 MG/DL (8.3-10.6); CARBON DIOXIDE LEVEL 28 MMOL/L (20-31); CHLORIDE LEVEL 104 MMOL/L (98-107); CHOLESTEROL LEVEL 213 MG/DL (<200); CHOLESTEROL RISK RATIO 4.00 (<5); CREATININE FOR GFR 0.86 MG/DL (0.70-1.30); GLOMERULAR FILTRATION RATE > 90.0 (>49); LDL CHOLESTEROL 128.8 MG/DL (<100); NON-HDL-C 159.8 MG/DL; POTASSIUM SERUM 4.3 MMOL/L (3.5-5.1); SODIUM LEVEL 142 MMOL/L (136-145); TRIGLYCERIDES LEVEL 155 MG/DL (<150)
== END ==
LOC: M SFHCCAPE 07:38
PROVIDERS: ATTEND Physician Assistant
DX: Z00.00 Encounter for general adult medical examination without abnormal findings (principal)

== ENCOUNTER → 2025-01-01 | Outpatient (CLI) | payer BC ==
[~2025-01-01] MED LIST changes: +PROHANCE 279.3MG/ML 15ML VIAL ONE; +PROHANCE 279.3MG/ML 5ML VIAL ONE
== END ==
LOC: M PLAIMG 13:35
PROVIDERS: ATTEND Physician Assistant
DX: M47.22 Other spondylosis with radiculopathy, cervical region (principal)
CPT/HCPCS: 72156; A9576